=== PATIENT | female | born 1960 | race Caucasian/White ===

== ENCOUNTER 2017-07-27 16:37 | Emergency (ER) | payer MEDICAID ==
[~2017-07-27] VITALS: Ht 167.6 cm; Wt 81.8 kg
[~2017-07-27 16:37] MED LIST: ALBU8.5H8 IH; HYDR-2514 PO; ZOF4T PO
[2017-07-27 16:49] VITALS: BP 111/77
[2017-07-27] MEDS ORDERED: HYDR-565 PO (17:02)
== END 2017-07-27 17:15 | disposition home or self-care (01) ==
LOC: ER 16:37
DX: K08.89 Other specified disorders of teeth and supporting structures (principal); G89.29 Other chronic pain
CPT/HCPCS: 99283

== ENCOUNTER 2017-10-18 14:32 | Emergency (ER) | payer MEDICAID ==
[~2017-10-18] VITALS: Ht 167.6 cm; Wt 81.8 kg
[2017-10-18 14:49] VITALS: BP 115/64
[2017-10-18] MEDS ORDERED: CLIN300C85 PO (15:02)
[2017-10-18] MEDS ORDERED: CHLO118M PO (15:02)
[2017-10-18] MEDS ORDERED: TRAM50TA2 PO (15:02)
== END 2017-10-18 15:16 | disposition home or self-care (01) ==
LOC: ER 14:33
DX: K04.7 Periapical abscess without sinus (principal); G89.29 Other chronic pain; F10.10 Alcohol abuse, uncomplicated; Z79.899 Other long term (current) drug therapy
CPT/HCPCS: 99283

== ENCOUNTER → 2018-05-09 | Emergency (ER) | payer MEDICAID ==
[~2018-05-09] VITALS: Ht 167.6 cm; Wt 87.7 kg
[~2018-05-09] MED LIST changes: +CHLO118M PO; +CLIN300C85 PO; +ERYT1OIN6 LEFTEYE
[2018-05-09 15:23] VITALS: BP 125/80
== END | disposition home or self-care (01) ==
LOC: ER 14:34
DX: H00.014 Hordeolum externum left upper eyelid (principal); G89.29 Other chronic pain
CPT/HCPCS: 99283

== ENCOUNTER 2020-08-26 11:40 | Emergency (ER) | payer MEDICAID ==
[~2020-08-26] VITALS: Ht 167.6 cm; Wt 85.5 kg
[~2020-08-26 11:40] MED LIST changes: +CLIN-97 PO; -CLIN300C85 PO; -ERYT1OIN6 LEFTEYE
[2020-08-26 11:44] VITALS: BP 128/77
== END 2020-08-26 13:09 | disposition home or self-care (01) ==
LOC: ER 11:41
DX: S52.124A Nondisplaced fracture of head of right radius, initial encounter for closed fracture (principal); M25.521 Pain in right elbow; G89.29 Other chronic pain; F41.9 Anxiety disorder, unspecified; F32.9 Major depressive disorder, single episode, unspecified; F19.90 Other psychoactive substance use, unspecified, uncomplicated; Z72.89 Other problems related to lifestyle; Z79.2 Long term (current) use of antibiotics; Z79.899 Other long term (current) drug therapy; W01.0XXA Fall on same level from slipping, tripping and stumbling without subsequent striking against object, initial encounter; Y93.89 Activity, other specified; Y92.89 Other specified places as the place of occurrence of the external cause; Y99.8 Other external cause status
CPT/HCPCS: 29105; 73080; 99283

== ENCOUNTER 2020-09-28 19:02 | Emergency (ER) | payer MEDICAID ==
[~2020-09-28] VITALS: Ht 167.6 cm; Wt 90.0 kg
[2020-09-28 20:47] VITALS: BP 131/82
== END 2020-09-28 21:45 | disposition home or self-care (01) ==
LOC: ER 19:03
DX: M79.601 Pain in right arm (principal); G89.29 Other chronic pain; F41.9 Anxiety disorder, unspecified; F32.9 Major depressive disorder, single episode, unspecified; F19.90 Other psychoactive substance use, unspecified, uncomplicated; Z72.89 Other problems related to lifestyle; Z79.2 Long term (current) use of antibiotics; Z79.899 Other long term (current) drug therapy
CPT/HCPCS: 73090; 73110; 99284

== ENCOUNTER 2022-05-14 05:41 | Day surgery (SDC) | payer OTHER ==
[2022-05-06 10:34] LABS: BASOPHILS # (AUTO) 0.1 X10'3 (0-0.2); EOSINOPHILS # (AUTO) 0.2 X10'3 (0-0.9); EOSINOPHILS % (AUTO) 3.2 % (0-6); LYMPHOCYTES # (AUTO) 1.8 X10'3 (1.1-4.8); LYMPHOCYTES % (AUTO) 34.4 % (21-51); MEAN CORPUSCULAR HEMOGLOBIN 30.5 PG (27.0-31.0); MEAN CORPUSCULAR HGB CONC 33.3 g/dL (33.0-36.5); MEAN CORPUSCULAR VOLUME 91.5 FL (78-98); MEAN PLATELET VOLUME 7.6 FL (7.4-10.4); MONOCYTES # (AUTO) 0.4 X10'3 (0-0.9); MONOCYTES % (AUTO) 7.5 % (2-12); NEUTROPHILS # (AUTO) 2.8 X10'3 (1.8-7.7); NEUTROPHILS % (AUTO) 53.9 % (42-75); PRE OP HEMATOCRIT 39.1 % (35.0-45.0); PRE OP PLATELET COUNT 295 X10'3 (140-440); RED BLOOD COUNT 4.28 X10'6 (4.20-5.60); RED CELL DISTRIBUTION WIDTH 13.6 % (11.5-14.5)
[2022-05-06 10:52] LABS: ALBUMIN 4.1 G/DL (3.4-5.0); ALBUMIN/GLOBULIN RATIO 1.1 (1.1-1.5); ALKALINE PHOSPHATASE 106 IU/L (46-116); BLOOD UREA NITROGEN 15 MG/DL (7-18); BUN/CREATININE RATIO 15.5 (6.6-38.0); CALCIUM 8.9 MG/DL (8.5-10.1); CHLORIDE 104 MMOL/L (99-107); CREATININE 0.97 MG/DL (0.40-0.90); PRE OP ALT 42 U/L (30-65); PRE OP ANION GAP 9 (8-16); PRE OP AST 23 U/L (10-37); PRE OP BILIRUB, TOTAL 0.2 MG/DL (0.0-1.0); PRE OP GLUCOSE 97 MG/DL (70-104); PRE OP POTASSIUM 4.1 MMOL/L (3.4-5.1); PRE OP SODIUM 137 MMOL/L (135-145); TOTAL CARBON DIOXIDE 24.4 MMOL/L (24-32); TOTAL PROTEIN 7.8 G/DL (6.4-8.2); eGFR 59 ML/MIN
[~2022-05-14] VITALS: Ht 167.6 cm; Wt 92.3 kg
[2022-05-14] VITALS (14 sets, daily range): BP systolic 119–158; BP diastolic 70–116
[~2022-05-14 05:41] MED LIST changes: +ACET-2971 PO; -ALBU8.5H8 IH; +BUPR-122 PO; -CHLO118M PO; -CLIN-97 PO; -HYDR-2514 PO; +LEVO75TA7 PO; +OMEP20CA16 PO; -ZOF4T PO; +ceFAZolin inj. 2,000 MG in dextrose 5%-water 100 ML IV ONE; +famotidine 20mg tablet PO ONE; +ringers solution, lacted 1,000 ML IV SCH; +tranexamic acid inj. 1,000 MG in normal saline IV soln 100ML IV ONE; +vancomycin 1,500 MG in NS 300ml IV soln IV ONE
--- NOTE | 2022-05-14 06:45 | NUR ---
PT STATES THAT THE IV IS STINGING. VANCO IS RUNNING @ 150ML/HR. IV SITE LOOKS GOOD, NOT RED OR PUFFY, IV FLUSHES WITH NO ISSUES AND GOOD BLOOD RETURN. VANCO IS NOW RUNNING @ 125ML/HR AND PT STATES IT FEELS BETTER. WILL CONTINUE TO ASSESS
[2022-05-14] MEDS ORDERED: vancomycin 1,000mg inj ONE (07:14)
--- NOTE | 2022-05-14 07:30 | NUR ---
CMS NOTE: PT STATES SHE SHOWERED 5X WITH HIBICLENS AND USED THE MUPIROCIN NASAL OINTMENT USED X5 DAYS. PT HAS GOOD PALPABLE RADIAL PULSES AND HAS BEEN INSTRUCTED ON USE OF IS WITH RETURN DEMONSTRATION PERFORMED.
[2022-05-14] MEDS ORDERED: FENTANYL CITRATE/PF 50 MCG/1 ML VIAL ONE (07:39)
[2022-05-14] MEDS ORDERED: MIDAZolam 1 MG/ML 5ML VIAL ONE (07:40)
[2022-05-14] MEDS ORDERED: sevoflurane 250ml liquid IH ONE (07:57)
[2022-05-14] MEDS ORDERED: ROPIVAcaine 0.5% (5mg/ml) 30ml vial ONE (08:38)
[2022-05-14] MEDS ORDERED: propofol inj 20 ML IV ONE (08:38)
[2022-05-14] MEDS ORDERED: LIDOcaine 2% (20mg/ml) 5ml vial ONE (08:38)
[2022-05-14] MEDS ORDERED: ondansetron/PF 4mg/2ml inj ONE (08:39)
[2022-05-14] MEDS ORDERED: dexamethasone sod phosphate 4mg/ml inj. ONE (08:39)
[2022-05-14] MEDS ORDERED: ondansetron/PF 4mg/2ml inj IV PRN (09:15)
[2022-05-14] MEDS ORDERED: ringers solution, lacted 1,000 ML IV SCH (09:15)
[2022-05-14] MEDS ORDERED: meperidine/PF 25mg/ml syringe IV PRN ×3 (09:15)
[2022-05-14] MEDS ORDERED: morphine 2 MG/ML inj. syringe IV PRN (09:15)
[2022-05-14] MEDS ORDERED: proCHLORperazine 10 MG/2 ml inj IV PRN (09:15)
[2022-05-14] MEDS ORDERED: morphine 4 MG/ML inj SYRINge IV PRN (09:15)
[2022-05-14] MEDS ORDERED: ROPIVAcaine 0.2%/PF PUMP/bolus 545 ML INTERSCALE SCH (09:39)
[2022-05-14] MEDS ORDERED: ROPIVAcaine 0.2% (10 MG/5 ML) BOLUS INJECTION INTERSCALE PRN (09:40)
--- NOTE | 2022-05-14 10:52 | NUR ---
Received from OR via hospital bed, accompanied by Anesthesiologist dr frank and report given by Anesthesiolgist. PT PRESNTS WITH 20G LEFT HAND, RIGHT SHOULDER WRAP WITH POWDER PACK AND SLING WITH ON-Q READY. VSS. Addendum: 05/14/22 at 1106 by Roseanna Diego RN, RN Amended: Links added.
--- NOTE | 2022-05-14 14:00 | NUR ---
PT AT BEDSIDE EVALUATING PT. PT UP AND WALKING WITH STEADY GAIT. Addendum: 05/14/22 at 1432 by Roseanna Diego RN, RN Amended: Links added.
[2022-05-14] MEDS ORDERED: HYDROcodone/acetaminophen 10/325mg tab PO ONE (14:02)
--- NOTE | 2022-05-14 14:22 | NUR ---
ALL DISCHARGE CRITERIA HAS BEEN MET. VSS, PAIN AT A TOLERABLE LEVEL, VOIDING AND ABLE TO SAFELY AMBULATE AND TRANSFER SELF. IV TAKEN OUT WITHOUT ANY COMPLICATIONS. ALL DISCHARGE INSTRUCTIONS COVERED WITH PATIENT AND ALL QUESTIONS ANSWERED. PATIENT TAKEN OUT VIA WHEELCHAIR WITH ALL BELONGINGS TO PERSONAL VEHICLE WHERE FAMILY/FRIEND DROVE PATIENT HOME. Addendum: 05/14/22 at 1431 by Roseanna Diego RN, RN Amended: Links added.
== END 2022-05-14 14:22 | disposition home or self-care (01) ==
LOC: PAS 05:41
PROVIDERS: ATTEND Orthopaedic Surgery
DX: M19.011 Primary osteoarthritis, right shoulder (principal); Z79.899 Other long term (current) drug therapy; Z98.890 Other specified postprocedural states
CPT/HCPCS: 23472; 36415; 64416; 73020; 80053; 82948; 85025; 87081; 93005; 97161; C1713; C1776; J0690; J1100; J2175; J2250; J2405; J2704; J2795; J3010; J3370; J3490; J7030; J7040; J7060; J7120; Z7506; Z7508; Z7512; A4615; A4618; A7000; C9250

== ENCOUNTER 2022-09-04 12:14 | Emergency (ER) | payer MEDICAID, OTHER ==
[~2022-09-04] VITALS: Ht 167.6 cm; Wt 93.8 kg
[~2022-09-04 12:14] MED LIST changes: -ceFAZolin inj. 2,000 MG in dextrose 5%-water 100 ML IV ONE; -famotidine 20mg tablet PO ONE; -ringers solution, lacted 1,000 ML IV SCH; -tranexamic acid inj. 1,000 MG in normal saline IV soln 100ML IV ONE; -vancomycin 1,500 MG in NS 300ml IV soln IV ONE
[2022-09-04 12:27] VITALS: BP 129/89
== END 2022-09-04 13:13 | disposition home or self-care (01) ==
LOC: ER 12:14
DX: M77.31 Calcaneal spur, right foot (principal)
CPT/HCPCS: 73630; 99283; L3260

== ENCOUNTER 2024-01-23 19:34 | Emergency (ER) | payer MEDICAID ==
[~2024-01-23] VITALS: Ht 167.6 cm; Wt 92.3 kg
[2024-01-23 19:39] VITALS: BP 117/84
[2024-01-23] MEDS ORDERED: CLIN-97 PO (20:18)
[2024-01-23 20:24] VITALS: PULSE 72; RESP 14; TEMP 98; O2SAT 96
== END 2024-01-23 20:28 | disposition home or self-care (01) ==
LOC: ER 19:35
DX: K08.89 Other specified disorders of teeth and supporting structures (principal); F41.9 Anxiety disorder, unspecified; F32.A Depression, unspecified; Z79.1 Long term (current) use of non-steroidal anti-inflammatories (NSAID); Z79.899 Other long term (current) drug therapy
CPT/HCPCS: 99283